=== PATIENT | male | born 1955 | race Caucasian/White ===

== ENCOUNTER 2021-02-13 14:02 | Emergency (ER) | payer OTHER ==
[~2021-02-13] VITALS: Ht 180.3 cm; Wt 86.2 kg
[2021-02-13] MEDS ORDERED: SODIUM CHLORIDE 0.9% 500 ML IV ONE (14:45)
[2021-02-13 15:27] LABS: Basophils # (auto) 0.1 10 ^3/uL (0-0.2); Eosinophils # (auto) 0.3 10 ^3/uL (0-0.8); Eosinophils % (auto) 2.4 % (0.0-7.0); Hematocrit 48.1 % (41.0-53.0); Hemoglobin 15.8 g/dL (13.5-17.5); Lymphocytes # (auto) 1.9 10 ^3/uL (0.4-5.4); Lymphocytes % (auto) 18.5 % (10.0-50.0); Mean Corpuscular Hemoglobin 30.9 pg (28.0-32.0); Mean Corpuscular Volume 93.7 fL (80.0-100.0); Monocytes # (auto) 1.2 10 ^3/uL (0-1.3); Monocytes % (auto) 11.5 % (0.0-12.0); Neutrophils % (auto) 66.6 % (37.0-80.0); Nucleated Red Blood Cells % 0.1 %; Platelet Count (auto) 325 10^3/uL (140-450); Red Blood Cells 5.13 10^6/uL (4.5-5.90); Red Cell Distribution Width 17.5 % (11.8-14.3); White Blood Cell 10.5 10^3/uL (4.4-10.8)
[2021-02-13 15:29] LABS: Albumin 2.6 g/dL (3.4-5.0); Calcium 8.6 mg/dL (8.5-10.1); Potassium 4.6 mmol/L (3.5-5.1)
[2021-02-13 15:32] LABS: BUN/Creatinine Ratio 16.3; Bilirubin, Total 0.5 mg/dL (0.2-1.0); Total Protein 6.9 g/dL (6.4-8.2)
[2021-02-13] MEDS ORDERED: VANCOMYCIN 1GM/250ML 250 ML IV ONE (16:00)
[2021-02-13] MEDS ORDERED: CLINDAMYCIN HCL 150 MG CAP PO ONE (16:45)
[2021-02-13 16:56] VITALS: BP 109/70
== END 2021-02-13 17:00 | disposition admitted as inpatient to this hospital (09) ==
LOC: ER 14:02
DX: M86.072 Acute hematogenous osteomyelitis, left ankle and foot (principal); E11.22 Type 2 diabetes mellitus with diabetic chronic kidney disease; I12.9 Hypertensive chronic kidney disease with stage 1 through stage 4 chronic kidney disease, or unspecified chronic kidney disease; N18.9 Chronic kidney disease, unspecified; J44.9 Chronic obstructive pulmonary disease, unspecified; F17.210 Nicotine dependence, cigarettes, uncomplicated; F12.10 Cannabis abuse, uncomplicated; Z20.822 Contact with and (suspected) exposure to COVID-19
CPT/HCPCS: 36415; 73700; 80053; 85025; 85652; 87426; 96360; 99284; J3370; J7040

== ENCOUNTER 2021-04-28 12:23 | Inpatient (IN) | payer OTHER ==
[~2021-04-28] VITALS: Ht 180.3 cm; Wt 78.4 kg
[2021-04-28 13:42] LABS: Basophils # (auto) 0.1 10 ^3/uL (0-0.2); Eosinophils # (auto) 0 10 ^3/uL (0-0.8); Hemoglobin 17.9 g/dL (13.5-17.5); Monocytes # (auto) 1.4 10 ^3/uL (0-1.3); Neutrophils # (auto) 15.1 10 ^3/uL (1.6-8.6); Nucleated Red Blood Cells % 0.1 %; White Blood Cell 17.2 10^3/uL (4.4-10.8)
[2021-04-28 13:43] LABS: Basophils % (auto) 0.4 % (0.0-2.0); Hematocrit 53.6 % (41.0-53.0); Lymphocytes # (auto) 0.6 10 ^3/uL (0.4-5.4); Lymphocytes % (auto) 3.7 % (10.0-50.0); Mean Corpuscular Hemoglobin 30.9 pg (28.0-32.0); Mean Corpuscular Hgb Conc. 33.3 g/dL (32.0-36.0); Mean Corpuscular Volume 92.8 fL (80.0-100.0); Monocytes % (auto) 8.1 % (0.0-12.0); Neutrophils % (auto) 87.8 % (37.0-80.0); Red Blood Cells 5.77 10^6/uL (4.5-5.90); Red Cell Distribution Width 16.3 % (11.8-14.3)
[2021-04-28 13:59] LABS: Albumin 1.6 g/dL (3.4-5.0); Calcium 8.4 mg/dL (8.5-10.1); Potassium 4.2 mmol/L (3.5-5.1)
[2021-04-28 14:05] LABS: BUN/Creatinine Ratio 25.8; Bilirubin, Total 0.8 mg/dL (0.2-1.0); Total Protein 6.6 g/dL (6.4-8.2)
[2021-04-28] MEDS ORDERED: ACETAMINOPHEN 500 MG TAB PO ONE ×2 (14:12→14:15)
[2021-04-28] MEDS: IPRATROPIUM BROM 0.5 MG/2.5ML INH SOL NEB SCH ×2 (19:15→23:50)
[2021-04-28] MEDS ORDERED: NITROGLYCERIN 0.4 MG SL TAB SL PRN (19:15)
[2021-04-28] MEDS ORDERED: BUMETANIDE 2.5mg/10ml (0.25 mg/ml) INJ IV ONE (19:15)
[2021-04-28] MEDS ORDERED: HYDROcodone-ACET 5/325MG TAB PO PRN (19:15)
[2021-04-28] MEDS ORDERED: MORPHINE SULFATE INJECTION 2 MG/ML SYRG IV PRN ×2 (19:15)
[2021-04-28] MEDS ORDERED: ACETAMINOPHEN 500 MG TAB PO PRN ×2 (19:15)
[2021-04-28 20:40] LABS: Urine Bacteria NONE SEEN /hpf (None Seen); Urine Blood 2+ /uL (Negative); Urine WBC 1 /hpf (0 - 3)
[2021-04-28] MEDS ORDERED: ALBUTEROL SULF 2.5 MG/0.5ML(0.5%) NEB SOLN NEB SCH (22:00)
[2021-04-28] MEDS ORDERED: IPRATROPIUM BROM 0.5 MG/2.5ML INH SOL NEB SCH (22:00)
[2021-04-28] MEDS: methylPREDNISolone SOD SUCC 40 MG/ML VL IV SCH (22:18)
[2021-04-28] MEDS ORDERED: ALBUTEROL SULF 2.5 MG/0.5ML(0.5%) NEB SOLN NEB PRN (23:00)
[2021-04-28] MEDS ORDERED: IPRATROPIUM BROM 0.5 MG/2.5ML INH SOL NEB PRN (23:00)
[2021-04-28] MEDS: PIPERACILLIN-TAZOB 2.25GM 50 ML IV SCH (23:46)
[2021-04-28] MEDS: ALBUTEROL SULF 2.5 MG/0.5ML(0.5%) NEB SOLN NEB SCH (23:51)
[2021-04-29] MEDS: MORPHINE SULFATE INJECTION 2 MG/ML SYRG IV PRN ×2 (01:41→19:45)
[2021-04-29 01:59] VITALS: BP 102/63
[2021-04-29 05:09] LABS: Basophils # (auto) 0.1 10 ^3/uL (0-0.2); Eosinophils # (auto) 0 10 ^3/uL (0-0.8); Lymphocytes # (auto) 0.2 10 ^3/uL (0.4-5.4); Lymphocytes % (auto) 0.9 % (10.0-50.0); Mean Corpuscular Volume 93.2 fL (80.0-100.0); Monocytes # (auto) 0.3 10 ^3/uL (0-1.3); Monocytes % (auto) 1.4 % (0.0-12.0); Neutrophils # (auto) 20.4 10 ^3/uL (1.6-8.6); Red Cell Distribution Width 16.7 % (11.8-14.3)
[2021-04-29 05:11] LABS: Basophils % (auto) 0.4 % (0.0-2.0); Hematocrit 55.5 % (41.0-53.0); Hemoglobin 18.4 g/dL (13.5-17.5); Mean Corpuscular Hemoglobin 30.8 pg (28.0-32.0); Mean Corpuscular Hgb Conc. 33.1 g/dL (32.0-36.0); Neutrophils % (auto) 97.3 % (37.0-80.0); Nucleated Red Blood Cells % 0.1 %; Red Blood Cells 5.96 10^6/uL (4.5-5.90)
[2021-04-29 05:25] LABS: INR 1.16 (0.9-1.15); Partial Thromboplastin Time 29.2 sec (23.6-33.0)
[2021-04-29 05:29] LABS: Potassium 4.3 mmol/L (3.5-5.1)
[2021-04-29 05:35] LABS: BUN/Creatinine Ratio 29.4; Calcium 8.9 mg/dL (8.5-10.1)
[2021-04-29] MEDS: methylPREDNISolone SOD SUCC 40 MG/ML VL IV SCH ×3 (05:39→22:18)
[2021-04-29] MEDS: IPRATROPIUM BROM 0.5 MG/2.5ML INH SOL NEB SCH ×3 (06:00→18:23)
[2021-04-29] MEDS: ALBUTEROL SULF 2.5 MG/0.5ML(0.5%) NEB SOLN NEB SCH ×3 (06:01→18:23)
[2021-04-29] MEDS: PIPERACILLIN-TAZOB 2.25GM 50 ML IV SCH ×3 (06:30→19:53)
[2021-04-29] MEDS ORDERED: cefTRIAXone 1GM/50ML D5W 50 ML IV SCH (10:00)
[2021-04-29] MEDS ORDERED: ENOXAPARIN SOD 30 MG/0.3 ML SYRINGE SC SCH (10:00)
[2021-04-29] MEDS ORDERED: cefTRIAXone 1GM/50ML D5W 50 ML IV ONE (10:12)
[2021-04-29] MEDS: ENOXAPARIN SOD 40 MG/0.4 ML SYRINGE SC SCH (10:25)
[2021-04-29] MEDS ORDERED: BUMETANIDE 2.5mg/10ml (0.25 mg/ml) INJ IV ONE (10:45)
[2021-04-29] MEDS: AZITHROMYCIN 500MG/ 250ML 250 ML IV SCH (11:00)
[2021-04-29] MEDS ORDERED: GABA-339 PO (13:16)
[2021-04-29] MEDS ORDERED: OXYC-904 PO (13:16)
[2021-04-29] MEDS: ONDANSETRON HCL 4 MG/2 ML VIAL IV PRN (19:45)
[2021-04-29] MEDS ORDERED: GASTROGRAFIN 30 ML SOL ONE (20:59)
[2021-04-29] MEDS: LINEZOLID 600MG/300ML 300 ML IV SCH (22:19)
[2021-04-30] MEDS: PIPERACILLIN-TAZOB 2.25GM 50 ML IV SCH ×4 (00:10→18:14)
[2021-04-30] MEDS: MORPHINE SULFATE INJECTION 2 MG/ML SYRG IV PRN ×5 (01:07→23:19)
[2021-04-30] MEDS: methylPREDNISolone SOD SUCC 40 MG/ML VL IV SCH ×3 (05:42→22:07)
[2021-04-30] MEDS: IPRATROPIUM BROM 0.5 MG/2.5ML INH SOL NEB SCH ×3 (07:35→19:39)
[2021-04-30] MEDS: ALBUTEROL SULF 2.5 MG/0.5ML(0.5%) NEB SOLN NEB SCH ×3 (07:35→19:39)
[2021-04-30] MEDS: LINEZOLID 600MG/300ML 300 ML IV SCH ×2 (08:00→22:06)
[2021-04-30] MEDS: HYDROcodone-ACET 5/325MG TAB PO PRN (08:55)
[2021-04-30] MEDS: AZITHROMYCIN 500MG/ 250ML 250 ML IV SCH (10:00)
[2021-04-30] MEDS: ENOXAPARIN SOD 40 MG/0.4 ML SYRINGE SC SCH (10:00)
[2021-04-30 11:31] LABS: Protein, Urine 307.4 mg/dL (0.0-11.9)
[2021-05-01] VITALS (7 sets, daily range): BP systolic 110–129; BP diastolic 63–91
[2021-05-01] MEDS: PIPERACILLIN-TAZOB 2.25GM 50 ML IV SCH ×4 (00:26→18:11)
[2021-05-01] MEDS: methylPREDNISolone SOD SUCC 40 MG/ML VL IV SCH ×3 (05:41→21:19)
[2021-05-01] MEDS: ALBUTEROL SULF 2.5 MG/0.5ML(0.5%) NEB SOLN NEB SCH ×4 (06:33→22:35)
[2021-05-01] MEDS: IPRATROPIUM BROM 0.5 MG/2.5ML INH SOL NEB SCH ×4 (06:34→22:35)
[2021-05-01] MEDS: MORPHINE SULFATE INJECTION 2 MG/ML SYRG IV PRN ×3 (06:50→21:20)
[2021-05-01 09:49] LABS: Hematocrit 51.2 % (41.0-53.0); Hemoglobin 16.8 g/dL (13.5-17.5); Mean Corpuscular Hemoglobin 30.8 pg (28.0-32.0); Mean Corpuscular Hgb Conc. 32.8 g/dL (32.0-36.0); Mean Corpuscular Volume 93.8 fL (80.0-100.0); Red Blood Cells 5.46 10^6/uL (4.5-5.90); Red Cell Distribution Width 16.9 % (11.8-14.3); White Blood Cell 19.7 10^3/uL (4.4-10.8)
[2021-05-01] MEDS: LINEZOLID 600MG/300ML 300 ML IV SCH ×2 (09:54→20:52)
[2021-05-01] MEDS: ENOXAPARIN SOD 40 MG/0.4 ML SYRINGE SC SCH (09:55)
[2021-05-01 09:57] LABS: Basophils % (manual) 0 (0.0-2.0); Blast Cells 0; Eosinophils % (manual) 0 (0-7); Metamyelocytes % 0; Myelocytes % 0; Promyelocytes % 0; Reactive Lymphocytes 0
[2021-05-01 10:02] LABS: BUN/Creatinine Ratio 29.6; Calcium 8.7 mg/dL (8.5-10.1); Potassium 3.7 mmol/L (3.5-5.1)
[2021-05-01] MEDS ORDERED: GASTROGRAFIN 120 ML SOL ONE (10:21)
[2021-05-01 10:37] LABS: Band Neutrophils % (manual) 18; Lymphocytes % (manual) 3 (10.0-50.0); Monocytes % (manual) 1 (0-12)
[2021-05-01] MEDS: AZITHROMYCIN 500MG/ 250ML 250 ML IV SCH (11:54)
[2021-05-02] MEDS: PIPERACILLIN-TAZOB 2.25GM 50 ML IV SCH ×4 (00:13→18:07)
[2021-05-02] MEDS: MORPHINE SULFATE INJECTION 2 MG/ML SYRG IV PRN ×3 (02:25→10:31)
[2021-05-02 05:00] VITALS: BP 116/71
[2021-05-02] MEDS: methylPREDNISolone SOD SUCC 40 MG/ML VL IV SCH ×3 (06:17→22:00)
[2021-05-02] MEDS: ALBUTEROL SULF 2.5 MG/0.5ML(0.5%) NEB SOLN NEB SCH ×5 (07:44→22:37)
[2021-05-02] MEDS: IPRATROPIUM BROM 0.5 MG/2.5ML INH SOL NEB SCH ×5 (07:44→22:37)
[2021-05-02] MEDS: LINEZOLID 600MG/300ML 300 ML IV SCH (08:11)
[2021-05-02] MEDS: ENOXAPARIN SOD 40 MG/0.4 ML SYRINGE SC SCH (10:00)
[2021-05-02] MEDS: AZITHROMYCIN 500MG/ 250ML 250 ML IV SCH (10:00)
[2021-05-02] MEDS ORDERED: IODIXANOL 320MG/ML 100ML BTL IV ONE ×2 (13:11→13:56)
[2021-05-02] MEDS ORDERED: LIDOCAINE 2%HCL (LOCAL ANESTH.) INJ 20ML MDV ONE (13:11)
[2021-05-02] MEDS ORDERED: fentaNYL CITRATE 100 MCG/2 ML VL ONE (13:27)
[2021-05-02] MEDS ORDERED: ANGIOMAX 250 MG VIAL IV ONE (13:27)
[2021-05-02] MEDS ORDERED: SODIUM CHL 0.9% 0 ML ONE (13:28)
[2021-05-02] MEDS ORDERED: MIDAZOLAM HCL 2MG/2ML 2ml VIAL (1mg/ml) ONE (13:28)
[2021-05-02] MEDS ORDERED: diphenhdrAMINE HCL 50 MG/1 ML VL ONE (13:58)
[2021-05-02 20:00] VITALS: BP 111/68
[2021-05-02 22:10] VITALS: BP 143/94
[2021-05-03] MEDS: PIPERACILLIN-TAZOB 2.25GM 50 ML IV SCH ×2 (01:27→06:50)
[2021-05-03] MEDS: MORPHINE SULFATE INJECTION 2 MG/ML SYRG IV PRN ×4 (04:07→23:31)
[2021-05-03 05:30] VITALS: BP 117/85
[2021-05-03] MEDS: IPRATROPIUM BROM 0.5 MG/2.5ML INH SOL NEB SCH ×5 (05:47→22:57)
[2021-05-03] MEDS: ALBUTEROL SULF 2.5 MG/0.5ML(0.5%) NEB SOLN NEB SCH ×5 (05:47→22:57)
[2021-05-03] MEDS: methylPREDNISolone SOD SUCC 40 MG/ML VL IV SCH ×3 (06:50→22:25)
[2021-05-03 07:01] LABS: Hematocrit 50.8 % (41.0-53.0); Hemoglobin 16.9 g/dL (13.5-17.5); Mean Corpuscular Hemoglobin 30.8 pg (28.0-32.0); Mean Corpuscular Hgb Conc. 33.3 g/dL (32.0-36.0); Mean Corpuscular Volume 92.8 fL (80.0-100.0); Red Blood Cells 5.47 10^6/uL (4.5-5.90); Red Cell Distribution Width 16.9 % (11.8-14.3); White Blood Cell 18.1 10^3/uL (4.4-10.8)
[2021-05-03] MEDS ORDERED: ceFAZolin 1GM VL ONE (07:21)
[2021-05-03] MEDS ORDERED: NEOMYCIN-BACITRACIN-POLYM 15GM TOP OINT TOP ONE (07:21)
[2021-05-03 07:28] LABS: Potassium 3.5 mmol/L (3.5-5.1)
[2021-05-03 07:36] LABS: BUN/Creatinine Ratio 35.4; Calcium 9.3 mg/dL (8.5-10.1); Magnesium 2.7 mg/dL (1.6-2.6)
[2021-05-03] MEDS ORDERED: ceFAZolin 1GM/50ML 50 ML IV ONE (07:48)
[2021-05-03] MEDS ORDERED: BUPIVACAINE HCL 50 ML ONE (07:52)
[2021-05-03 07:54] LABS: Basophils % (manual) 0 (0.0-2.0); Blast Cells 0; Eosinophils % (manual) 0 (0-7); Metamyelocytes % 0; Myelocytes % 0; Promyelocytes % 0
[2021-05-03] MEDS ORDERED: PROPOFOL 10 MG/ML 20 ML IV ONE ×2 (08:05→08:32)
[2021-05-03] MEDS ORDERED: MIDAZOLAM HCL 2MG/2ML 2ml VIAL (1mg/ml) ONE (08:05)
[2021-05-03] MEDS ORDERED: LIDOCAINE 2% (LOCAL ANESTH.) PF 5ml SDV ONE (08:05)
[2021-05-03] MEDS ORDERED: HYDROmorphone HCL 2 MG/ML VL IV PRN (09:15)
[2021-05-03] MEDS ORDERED: ONDANSETRON HCL 4 MG/2 ML VIAL IV PRN (09:15)
[2021-05-03] MEDS ORDERED: LABETALOL HCL 5 MG/ML 4ML SYRINGE IV PRN (09:15)
[2021-05-03 10:26] LABS: INR 1.27 (0.9-1.15); Partial Thromboplastin Time 27.9 sec (23.6-33.0)
[2021-05-03 11:58] LABS: Band Neutrophils % (manual) 16; Lymphocytes % (manual) 9 (10.0-50.0); Monocytes % (manual) 5 (0-12); Reactive Lymphocytes 1
[2021-05-03 13:00] VITALS: BP 124/82
[2021-05-03] MEDS: AZITHROMYCIN 250 MG TAB PO SCH (13:16)
[2021-05-03] MEDS: cefTRIAXone 1GM/50ML D5W 50 ML IV SCH (13:16)
[2021-05-03] MEDS: ONDANSETRON HCL 4 MG/2 ML VIAL IV PRN (13:17)
[2021-05-03] MEDS: ENOXAPARIN SOD 40 MG/0.4 ML SYRINGE SC SCH (13:20)
[2021-05-03 17:00] VITALS: BP 123/77
[2021-05-03] MEDS: HYDROcodone-ACET 5/325MG TAB PO PRN (20:58)
[2021-05-03 22:00] VITALS: BP 112/77
[2021-05-04] MEDS: HYDROmorphone HCL 2 MG/ML VL IV PRN ×5 (00:33→23:31)
[2021-05-04 05:00] VITALS: BP 130/87
[2021-05-04 05:31] LABS: INR 1.05 (0.9-1.15); Partial Thromboplastin Time 28.1 sec (23.6-33.0)
[2021-05-04 05:39] LABS: Hematocrit 48.3 % (41.0-53.0); Hemoglobin 15.7 g/dL (13.5-17.5); Mean Corpuscular Hemoglobin 30.1 pg (28.0-32.0); Mean Corpuscular Hgb Conc. 32.5 g/dL (32.0-36.0); Mean Corpuscular Volume 92.6 fL (80.0-100.0); Red Blood Cells 5.22 10^6/uL (4.5-5.90); Red Cell Distribution Width 16.9 % (11.8-14.3); White Blood Cell 17.6 10^3/uL (4.4-10.8)
[2021-05-04 05:42] LABS: Band Neutrophils % (manual) 0; Basophils % (manual) 0 (0.0-2.0); Blast Cells 0; Eosinophils % (manual) 0 (0-7); Metamyelocytes % 0; Myelocytes % 0; Promyelocytes % 0; Reactive Lymphocytes 0
[2021-05-04] MEDS: methylPREDNISolone SOD SUCC 40 MG/ML VL IV SCH ×3 (06:40→22:00)
[2021-05-04] MEDS: ALBUTEROL SULF 2.5 MG/0.5ML(0.5%) NEB SOLN NEB SCH ×5 (06:55→22:00)
[2021-05-04] MEDS: IPRATROPIUM BROM 0.5 MG/2.5ML INH SOL NEB SCH ×5 (06:55→22:00)
[2021-05-04 08:14] LABS: Lymphocytes % (manual) 5 (10.0-50.0); Monocytes % (manual) 2 (0-12)
[2021-05-04 08:32] VITALS: BP 144/87
[2021-05-04] MEDS: PANTOPRAZOLE 40 MG/10 ML VIAL INJ IV SCH (09:12)
[2021-05-04] MEDS: AZITHROMYCIN 250 MG TAB PO SCH (09:12)
[2021-05-04] MEDS: cefTRIAXone 1GM/50ML D5W 50 ML IV SCH (09:13)
[2021-05-04] MEDS: ONDANSETRON HCL 4 MG/2 ML VIAL IV PRN (09:23)
[2021-05-04] MEDS: HYDROcodone-ACET 5/325MG TAB PO PRN ×2 (09:24→18:57)
[2021-05-04 13:00] VITALS: BP 106/61
[2021-05-04 16:54] VITALS: BP 146/84
[2021-05-04 22:00] VITALS: BP 147/92
[2021-05-05] MEDS: HYDROmorphone HCL 2 MG/ML VL IV PRN ×3 (03:46→22:08)
[2021-05-05 05:00] VITALS: BP 141/78
[2021-05-05] MEDS: HYDROcodone-ACET 5/325MG TAB PO PRN ×2 (05:38→23:22)
[2021-05-05] MEDS: methylPREDNISolone SOD SUCC 40 MG/ML VL IV SCH ×2 (06:00→21:28)
[2021-05-05] MEDS: IPRATROPIUM BROM 0.5 MG/2.5ML INH SOL NEB SCH ×5 (07:32→22:50)
[2021-05-05] MEDS: ALBUTEROL SULF 2.5 MG/0.5ML(0.5%) NEB SOLN NEB SCH ×5 (07:32→22:50)
[2021-05-05 09:00] VITALS: BP 129/76
[2021-05-05] MEDS: cefTRIAXone 1GM/50ML D5W 50 ML IV SCH (11:10)
[2021-05-05] MEDS: PANTOPRAZOLE 40 MG/10 ML VIAL INJ IV SCH (11:11)
[2021-05-05] MEDS: AZITHROMYCIN 250 MG TAB PO SCH (11:11)
[2021-05-05 13:00] VITALS: BP 126/75
[2021-05-05] MEDS ORDERED: FAMO20TA10 PO (14:16)
[2021-05-05] MEDS ORDERED: ALBUAER3 IN (14:16)
[2021-05-05] MEDS ORDERED: PRED20TA2 PO (14:16)
[2021-05-05 14:50] VITALS: BP 126/75
[2021-05-05 17:00] VITALS: BP 127/80
[2021-05-05 22:00] VITALS: BP 134/78
[2021-05-06] MEDS: HYDROmorphone HCL 2 MG/ML VL IV PRN ×2 (01:05→08:47)
[2021-05-06 05:00] VITALS: BP 106/74
[2021-05-06] MEDS: HYDROcodone-ACET 5/325MG TAB PO PRN ×3 (06:04→21:02)
[2021-05-06] MEDS: IPRATROPIUM BROM 0.5 MG/2.5ML INH SOL NEB SCH ×5 (06:58→22:25)
[2021-05-06] MEDS: ALBUTEROL SULF 2.5 MG/0.5ML(0.5%) NEB SOLN NEB SCH ×5 (06:58→22:25)
[2021-05-06] MEDS: cefTRIAXone 1GM/50ML D5W 50 ML IV SCH (08:47)
[2021-05-06 09:00] VITALS: BP 143/93
[2021-05-06] MEDS: PANTOPRAZOLE 40 MG/10 ML VIAL INJ IV SCH (09:26)
[2021-05-06] MEDS: AZITHROMYCIN 250 MG TAB PO SCH (09:26)
[2021-05-06] MEDS: methylPREDNISolone SOD SUCC 40 MG/ML VL IV SCH ×2 (09:26→21:02)
[2021-05-06 13:00] VITALS: BP 149/112
[2021-05-06 17:00] VITALS: BP 157/77
[2021-05-06 21:36] VITALS: BP 135/70
[2021-05-07] MEDS: HYDROcodone-ACET 5/325MG TAB PO PRN ×3 (03:10→17:44)
[2021-05-07 05:12] VITALS: BP 143/84
[2021-05-07] MEDS: ALBUTEROL SULF 2.5 MG/0.5ML(0.5%) NEB SOLN NEB SCH ×5 (06:39→22:00)
[2021-05-07] MEDS: IPRATROPIUM BROM 0.5 MG/2.5ML INH SOL NEB SCH ×5 (06:39→22:00)
[2021-05-07 09:00] VITALS: BP 143/85
[2021-05-07] MEDS: cefTRIAXone 1GM/50ML D5W 50 ML IV SCH (09:35)
[2021-05-07] MEDS: PANTOPRAZOLE 40 MG/10 ML VIAL INJ IV SCH (09:38)
[2021-05-07] MEDS: methylPREDNISolone SOD SUCC 40 MG/ML VL IV SCH (09:39)
[2021-05-07 13:00] VITALS: BP 157/92
[2021-05-07 17:00] VITALS: BP 148/80
[2021-05-07] MEDS ORDERED: HYDROcodone-ACET 10/325MG TAB PO PRN (20:45)
[2021-05-07] MEDS: GABAPENTIN 300 MG CAP PO SCH (21:31)
[2021-05-07 22:00] VITALS: BP 152/79
[2021-05-08 05:00] VITALS: BP 150/83
[2021-05-08] MEDS: GABAPENTIN 300 MG CAP PO SCH ×2 (05:53→13:17)
[2021-05-08] MEDS: IPRATROPIUM BROM 0.5 MG/2.5ML INH SOL NEB SCH ×3 (06:00→14:17)
[2021-05-08] MEDS: ALBUTEROL SULF 2.5 MG/0.5ML(0.5%) NEB SOLN NEB SCH ×3 (06:00→14:17)
[2021-05-08 09:00] VITALS: BP 136/89
[2021-05-08] MEDS: cefTRIAXone 1GM/50ML D5W 50 ML IV SCH (09:54)
[2021-05-08 10:05] VITALS: BP 136/89
[2021-05-08 13:06] VITALS: BP 126/73
[2021-05-08 16:41] VITALS: BP 137/90
== END 2021-05-08 19:02 | DRG 853 ==
LOC: ER 12:23 → EDBD 12:23 → TELE 19:06 → TELE-WESTW 04-30 20:45
PROVIDERS: ADMIT Nurse Practitioner Acute Care; ATTEND Internal Medicine
PROC: B41GYZZ Fluoroscopy of Left Lower Extremity Arteries using Other Contrast (ICD-10-PCS; 2021-05-02)
PROC: B41FYZZ Fluoroscopy of Right Lower Extremity Arteries using Other Contrast (ICD-10-PCS; 2021-05-02)
PROC: 0Y6Q0Z0 Detachment at Left 1st Toe, Complete, Open Approach (ICD-10-PCS; 2021-05-03)
PROC: 0QTP0ZZ Resection of Left Metatarsal, Open Approach (ICD-10-PCS; principal; 2021-05-03 07:57)
PROC: 05HC33Z Insertion of Infusion Device into Left Basilic Vein, Percutaneous Approach (ICD-10-PCS; 2021-05-06)
PROC: B54NZZA Ultrasonography of Left Upper Extremity Veins, Guidance (ICD-10-PCS; 2021-05-06)
DX: A41.9 Sepsis, unspecified organism (principal); J18.9 Pneumonia, unspecified organism; J96.01 Acute respiratory failure with hypoxia; I50.21 Acute systolic (congestive) heart failure; E43 Unspecified severe protein-calorie malnutrition; N17.0 Acute kidney failure with tubular necrosis; J44.1 Chronic obstructive pulmonary disease with (acute) exacerbation; J98.11 Atelectasis; N18.4 Chronic kidney disease, stage 4 (severe); E87.1 Hypo-osmolality and hyponatremia; M86.8X7 Other osteomyelitis, ankle and foot; I13.0 Hypertensive heart and chronic kidney disease with heart failure and stage 1 through stage 4 chronic kidney disease, or unspecified chronic kidney disease; J44.0 Chronic obstructive pulmonary disease with (acute) lower respiratory infection; R65.20 Severe sepsis without septic shock; E11.621 Type 2 diabetes mellitus with foot ulcer; D63.8 Anemia in other chronic diseases classified elsewhere; E11.22 Type 2 diabetes mellitus with diabetic chronic kidney disease; E11.51 Type 2 diabetes mellitus with diabetic peripheral angiopathy without gangrene; E11.69 Type 2 diabetes mellitus with other specified complication; E78.5 Hyperlipidemia, unspecified; F17.210 Nicotine dependence, cigarettes, uncomplicated; M54.5 Low back pain; K43.9 Ventral hernia without obstruction or gangrene; N40.1 Benign prostatic hyperplasia with lower urinary tract symptoms; R33.8 Other retention of urine; L97.529 Non-pressure chronic ulcer of other part of left foot with unspecified severity; Z20.822 Contact with and (suspected) exposure to COVID-19; Z79.4 Long term (current) use of insulin; Z83.3 Family history of diabetes mellitus; Z90.81 Acquired absence of spleen; Z95.0 Presence of cardiac pacemaker; Z68.24 Body mass index [BMI] 24.0-24.9, adult
CPT/HCPCS: 36415; 36600; 71045; 73620; 73700; 73718; 74018; 74176; 74250; 75716; 76775; 78582; 80048; 80053; 81001; 82306; 82570; 82805; 83605; 83735; 83880; 83970; 84100; 84156; 84300; 84484; 85007; 85025; 85027; 85379; 85610; 85730; 87040; 87070; 87075; 87077; 87081; 87186; 87205; 87426; 93005; 93306; 93926; 94640; 96365; 96375; 97110; 97116; 97163; 97530; 99152; C9113; G0378; J0690; J0696; J2001; J2250; J2405; J2543; J2704; J3490; Q9967

== ENCOUNTER 2021-10-16 08:45 | Inpatient (IN) | payer OTHER ==
[2021-10-16] VITALS (10 sets, daily range): BP systolic 83–141; BP diastolic 44–88
[~2021-10-16] VITALS: Ht 180.3 cm; Wt 82.4 kg
[~2021-10-16 08:45] MED LIST: ALBUAER3 IN; ASPI1TAB20 PO; CALC1CAP31 PO; FAMO20TA10 PO; GABA-339 PO; MET50T PO; OXYC-904 PO; PRAV20TA3 PO; PRED20TA2 PO; TAMS0.4C36 PO
[2021-10-16] MEDS ORDERED: ceFAZolin 1GM/50ML 100 ML IV ONE (08:54)
[2021-10-16] MEDS ORDERED: LIDOCAINE W/ EPINEPHRINE 2% INJ 20ML VIAL ONE (09:32)
[2021-10-16] MEDS ORDERED: BUPIVACAINE 0.25% INJ 50ML VIAL ONE (09:33)
[2021-10-16] MEDS ORDERED: VANCOMYCIN HCL 1000 MG VL ONE (09:34)
[2021-10-16] MEDS ORDERED: MIDAZOLAM HCL 2MG/2ML 2ml VIAL (1mg/ml) ONE (11:45)
[2021-10-16] MEDS ORDERED: fentaNYL CITRATE 5 ML ONE (11:45)
[2021-10-16] MEDS ORDERED: IOHEXOL 300 MG/ML 100ML BOTTLE IJ ONE (12:30)
[2021-10-16] MEDS ORDERED: EPINEPHrine HCL 1 MG/1 ML AMP ONE (13:22)
[2021-10-16] MEDS ORDERED: MIDAZOLAM DRIP 50 mg/50mL 50 ML IV ONE (14:15)
[2021-10-16] MEDS ORDERED: NALOXONE HCL 0.4 MG/ML VIAL ONE (14:15)
[2021-10-16] MEDS ORDERED: NOREPINEPHRINE 8 MG/250ML KIT 250 ML IV ONE (14:16)
[2021-10-16] MEDS: MIDAZOLAM DRIP 50 mg/50mL 50 ML IV SCH ×2 (14:32→21:06)
[2021-10-16] MEDS: NOREPINEPHRINE 8 MG/250ML KIT 250 ML IV SCH (14:33)
[2021-10-16 14:44] LABS: Basophils # (auto) 0 10 ^3/uL (0-0.2); Basophils % (auto) 0.5 % (0.0-2.0); Eosinophils # (auto) 0.2 10 ^3/uL (0-0.8); Eosinophils % (auto) 2.3 % (0.0-7.0); Hematocrit 29.1 % (41.0-53.0); Lymphocytes # (auto) 1.2 10 ^3/uL (0.4-5.4); Mean Corpuscular Hemoglobin 28.5 pg (28.0-32.0); Mean Corpuscular Volume 91.9 fL (80.0-100.0); Monocytes # (auto) 0.5 10 ^3/uL (0-1.3); Monocytes % (auto) 6.1 % (0.0-12.0); Neutrophils % (auto) 76.1 % (37.0-80.0); Nucleated Red Blood Cells % 0.1 %; Red Blood Cells 3.17 10^6/uL (4.5-5.90); Red Cell Distribution Width 18.9 % (11.8-14.3); White Blood Cell 7.9 10^3/uL (4.4-10.8)
[2021-10-16] MEDS ORDERED: D5W/SOD CHLO 0.9% 1,000 ML IV SCH (14:45)
[2021-10-16] MEDS ORDERED: SODIUM CHLORIDE 0.9% 1,000 ML IV ONE (14:45)
[2021-10-16] MEDS ORDERED: MORPHINE SULFATE INJECTION 2 MG/ML SYRG IV PRN (14:45)
[2021-10-16] MEDS ORDERED: NITROGLYCERIN 0.4 MG SL TAB SL PRN (14:45)
[2021-10-16 14:47] LABS: INR 1.37 (0.9-1.15); Partial Thromboplastin Time 40.4 sec (23.6-33.0)
[2021-10-16 14:57] LABS: Albumin 1.1 g/dL (3.4-5.0); BUN/Creatinine Ratio 22.4; Calcium 6.5 mg/dL (8.5-10.1); Potassium 4.2 mmol/L (3.5-5.1)
[2021-10-16 15:00] LABS: Bilirubin, Total 0.2 mg/dL (0.2-1.0); Total Protein 2.9 g/dL (6.4-8.2)
[2021-10-16] MEDS ORDERED: ACETAMINOPHEN 500 MG TAB PO ONE (16:00)
[2021-10-16] MEDS ORDERED: ONDANSETRON HCL 4 MG/2 ML VIAL IV PRN (16:00)
[2021-10-16] MEDS: fentaNYL Drip 2500mCg/250mlNS 250 ML IV SCH (17:00)
[2021-10-16] MEDS: MAGNESIUM SULFATE 1GM/100ML 100 ML IV SCH ×3 (17:00→23:12)
[2021-10-16] MEDS ORDERED: SODIUM BICARBONATE 8.4% INJ 50ML SYRINGE IV ONE ×2 (21:10)
[2021-10-16] MEDS ORDERED: EPINEPHrine HCL 1 MG/10 ML SYRG IV ONE (21:10)
[2021-10-16] MEDS: D5W/SOD CHLO 0.9% 1,000 ML IV SCH (22:16)
[2021-10-17] VITALS (30 sets, daily range): BP systolic 102–173; BP diastolic 58–98
[2021-10-17] MEDS: MAGNESIUM SULFATE 1GM/100ML 100 ML IV SCH (00:28)
[2021-10-17] MEDS: MIDAZOLAM DRIP 50 mg/50mL 50 ML IV SCH (00:45)
[2021-10-17] MEDS: D5W/SOD CHLO 0.9% 1,000 ML IV SCH ×2 (05:20→18:40)
[2021-10-17 09:54] LABS: Eosinophils # (auto) 0.1 10 ^3/uL (0-0.8); Lymphocytes # (auto) 1.4 10 ^3/uL (0.4-5.4); Mean Corpuscular Hemoglobin 28.2 pg (28.0-32.0); Monocytes # (auto) 1.2 10 ^3/uL (0-1.3); Neutrophils # (auto) 7.2 10 ^3/uL (1.6-8.6); Nucleated Red Blood Cells % 0.2 %
[2021-10-17 09:55] LABS: Basophils # (auto) 0 10 ^3/uL (0-0.2); Basophils % (auto) 0.5 % (0.0-2.0); Eosinophils % (auto) 1.1 % (0.0-7.0); Hematocrit 44.6 % (41.0-53.0); Hemoglobin 13.5 g/dL (13.5-17.5); Lymphocytes % (auto) 14.2 % (10.0-50.0); Mean Corpuscular Hgb Conc. 30.3 g/dL (32.0-36.0); Mean Corpuscular Volume 93.1 fL (80.0-100.0); Neutrophils % (auto) 72.2 % (37.0-80.0); Red Cell Distribution Width 19.5 % (11.8-14.3)
[2021-10-17] MEDS: FAMOTIDINE (10MG/ML) 2ML VL IV SCH (10:00)
[2021-10-17] MEDS ORDERED: FUROSEMIDE 40 MG/4 ML VIAL IV ONE (12:15)
[2021-10-17] MEDS ORDERED: ASPirin 81 mg TAB PO ONE (12:15)
[2021-10-17 13:16] LABS: Urine WBC None Seen /hpf (0 - 3)
[2021-10-17 13:48] LABS: Alcohol, Urine < 3.0 mg/dL (0-10); Amphetamine Screen, Urine NEGATIVE (NEGATIVE); Barbiturate Scree,Urine NEGATIVE (NEGATIVE); Benzodiazephine Screen, Urine POSITIVE (NEGATIVE); Cannabinoid Screen, Urine NEGATIVE (NEGATIVE); Cocaine Screen, Urine NEGATIVE (NEGATIVE); Opiate Scree,Urine NEGATIVE (NEGATIVE); Phencyclidine Screen, Urine NEGATIVE (NEGATIVE)
[2021-10-17] MEDS: NOREPINEPHRINE 8 MG/250ML KIT 250 ML IV SCH (14:15)
[2021-10-17 14:26] LABS: Urine Bacteria FEW /hpf (None Seen); Urine Blood 2+ /uL (Negative); Urine Hyaline Cast FEW /lpf (0 - 2); Urine Mucus FEW (None Seen); Urine Specific Gravity 1.015 (1.001-1.035)
[2021-10-17 15:11] LABS: Potassium 4.1 mmol/L (3.5-5.1); Sodium 129 mmol/L (136-145)
[2021-10-17 15:12] LABS: Alkaline Phosphatase 218 U/L (45-117); Anion Gap 10 (5-15); Aspartate Aminotransferase 29 U/L (15-37); BUN/Creatinine Ratio 12.3; Blood Urea Nitrogen 21 mg/dL (7-18); Carbon Dioxide 19 mmol/L (21-32); Chloride 100 mmol/L (98-107); GFR African American 52 mL/min; GFR Non-African American 43 mL/min; Glucose 382 mg/dL (74-106)
[2021-10-17 15:13] LABS: Alanine Aminotransferase 24 U/L (16-61); Albumin 2.9 g/dL (3.4-5.0); Bilirubin, Total 0.8 mg/dL (0.2-1.0); Calcium 7.9 mg/dL (8.5-10.1); Magnesium 2.4 mg/dL (1.6-2.6); Total Protein 7.2 g/dL (6.4-8.2)
[2021-10-17] MEDS: fentaNYL Drip 2500mCg/250mlNS 250 ML IV SCH (16:45)
[2021-10-17] MEDS ORDERED: hydrALAZINE HCL 20 MG/ML VL ONE (17:52)
[2021-10-17] MEDS: FUROSEMIDE 40 MG/4 ML VIAL IV SCH (18:00)
[2021-10-18] VITALS (27 sets, daily range): BP systolic 99–162; BP diastolic 65–101
[2021-10-18 04:52] LABS: Basophils # (auto) 0.1 10 ^3/uL (0-0.2); Basophils % (auto) 0.8 % (0.0-2.0); Eosinophils # (auto) 0.2 10 ^3/uL (0-0.8); Eosinophils % (auto) 1.3 % (0.0-7.0); Hematocrit 45.9 % (41.0-53.0); Hemoglobin 14.8 g/dL (13.5-17.5); Lymphocytes % (auto) 8.4 % (10.0-50.0); Mean Corpuscular Hemoglobin 28.3 pg (28.0-32.0); Mean Corpuscular Hgb Conc. 32.1 g/dL (32.0-36.0); Mean Corpuscular Volume 88.1 fL (80.0-100.0); Monocytes # (auto) 1.6 10 ^3/uL (0-1.3); Monocytes % (auto) 12.6 % (0.0-12.0); Neutrophils # (auto) 9.6 10 ^3/uL (1.6-8.6); Neutrophils % (auto) 76.9 % (37.0-80.0); Nucleated Red Blood Cells % 0.2 %; Red Blood Cells 5.21 10^6/uL (4.5-5.90); Red Cell Distribution Width 18.4 % (11.8-14.3); White Blood Cell 12.4 10^3/uL (4.4-10.8)
[2021-10-18 05:11] LABS: Potassium 4.5 mmol/L (3.5-5.1)
[2021-10-18 05:22] LABS: Albumin 2.4 g/dL (3.4-5.0); Bilirubin, Total 0.8 mg/dL (0.2-1.0); Calcium 8.3 mg/dL (8.5-10.1); Total Protein 6.2 g/dL (6.4-8.2)
[2021-10-18] MEDS: FUROSEMIDE 40 MG/4 ML VIAL IV SCH ×2 (05:56→18:00)
[2021-10-18] MEDS: D5W/SOD CHLO 0.9% 1,000 ML IV SCH (08:00)
[2021-10-18] MEDS: FAMOTIDINE (10MG/ML) 2ML VL IV SCH (10:09)
[2021-10-18] MEDS: NOREPINEPHRINE 8 MG/250ML KIT 250 ML IV SCH (10:10)
[2021-10-18] MEDS: ASPirin 81 mg TAB PO SCH (10:10)
[2021-10-18] MEDS: MIDAZOLAM DRIP 50 mg/50mL 50 ML IV SCH (14:15)
[2021-10-18] MEDS: fentaNYL Drip 2500mCg/250mlNS 250 ML IV SCH ×2 (16:45→23:00)
[2021-10-19] VITALS (30 sets, daily range): BP systolic 98–149; BP diastolic 56–85
[2021-10-19] MEDS: D5W/SOD CHLO 0.9% 1,000 ML IV SCH ×3 (01:42→16:25)
[2021-10-19 03:32] LABS: Calcium 8.2 mg/dL (8.5-10.1)
[2021-10-19] MEDS: FUROSEMIDE 40 MG/4 ML VIAL IV SCH ×2 (05:32→17:30)
[2021-10-19] MEDS: ENOXAPARIN SOD 40 MG/0.4 ML SYRINGE SC SCH (09:51)
[2021-10-19] MEDS: FAMOTIDINE (10MG/ML) 2ML VL IV SCH (09:51)
[2021-10-19] MEDS: ASPirin 81 mg TAB PO SCH (09:51)
[2021-10-19] MEDS: MIDAZOLAM DRIP 50 mg/50mL 50 ML IV SCH (14:11)
[2021-10-19] MEDS: NOREPINEPHRINE 8 MG/250ML KIT 250 ML IV SCH (14:11)
[2021-10-19] MEDS ORDERED: levoFLOXacin 500MG 100 ML IV ONE (14:15)
[2021-10-19] MEDS: ALBUTEROL SULF 2.5 MG/0.5ML(0.5%) NEB SOLN NEB SCH ×2 (14:28→18:45)
[2021-10-19] MEDS: ACETYLCYSTEINE 10 %(100MG/ML) SOL 4ML NEB SCH ×2 (14:28→18:45)
[2021-10-19] MEDS ORDERED: ACETYLCYSTEINE 10 %(100MG/ML) SOL 4ML NEB PRN (19:00)
[2021-10-20] VITALS (29 sets, daily range): BP systolic 95–153; BP diastolic 56–95
[2021-10-20] MEDS: fentaNYL Drip 2500mCg/250mlNS 250 ML IV SCH (01:53)
[2021-10-20 03:54] LABS: Basophils # (auto) 0.1 10 ^3/uL (0-0.2); Basophils % (auto) 0.7 % (0.0-2.0); Eosinophils # (auto) 0.3 10 ^3/uL (0-0.8); Eosinophils % (auto) 2.3 % (0.0-7.0); Hematocrit 42.4 % (41.0-53.0); Hemoglobin 13.3 g/dL (13.5-17.5); Lymphocytes # (auto) 1.1 10 ^3/uL (0.4-5.4); Lymphocytes % (auto) 7.9 % (10.0-50.0); Mean Corpuscular Hemoglobin 27.9 pg (28.0-32.0); Mean Corpuscular Hgb Conc. 31.4 g/dL (32.0-36.0); Mean Corpuscular Volume 89.1 fL (80.0-100.0); Monocytes # (auto) 1.9 10 ^3/uL (0-1.3); Neutrophils # (auto) 10.9 10 ^3/uL (1.6-8.6); Neutrophils % (auto) 76.1 % (37.0-80.0); Red Blood Cells 4.77 10^6/uL (4.5-5.90); White Blood Cell 14.4 10^3/uL (4.4-10.8)
[2021-10-20 04:14] LABS: Calcium 8.3 mg/dL (8.5-10.1); Potassium 4.2 mmol/L (3.5-5.1)
[2021-10-20 04:18] LABS: BUN/Creatinine Ratio 19.6; Bilirubin, Total 0.7 mg/dL (0.2-1.0); Total Protein 6.2 g/dL (6.4-8.2)
[2021-10-20] MEDS: FUROSEMIDE 40 MG/4 ML VIAL IV SCH ×2 (05:37→17:34)
[2021-10-20] MEDS: D5W/SOD CHLO 0.9% 1,000 ML IV SCH ×2 (06:21→17:35)
[2021-10-20] MEDS: ALBUTEROL SULF 2.5 MG/0.5ML(0.5%) NEB SOLN NEB PRN (06:25)
[2021-10-20] MEDS: levoFLOXacin 500MG 100 ML IV SCH (10:30)
[2021-10-20] MEDS: FAMOTIDINE (10MG/ML) 2ML VL IV SCH (10:30)
[2021-10-20] MEDS: ASPirin 81 mg TAB PO SCH (10:31)
[2021-10-20] MEDS: ENOXAPARIN SOD 40 MG/0.4 ML SYRINGE SC SCH (10:31)
[2021-10-20] MEDS: MIDAZOLAM DRIP 50 mg/50mL 50 ML IV SCH (14:15)
[2021-10-20] MEDS: NOREPINEPHRINE 8 MG/250ML KIT 250 ML IV SCH (14:15)
[2021-10-20] MEDS: MORPHINE SULFATE INJECTION 2 MG/ML SYRG IV PRN ×2 (15:30→21:30)
[2021-10-20] MEDS ORDERED: LORazepam 2MG/ML-1ML VIAL IV ONE (16:00)
[2021-10-20] MEDS ORDERED: LORazepam 2MG/ML-1ML VIAL IV PRN (16:45)
[2021-10-20] MEDS ORDERED: LORazepam 2MG/ML-1ML VIAL ONE (16:48)
[2021-10-21] VITALS (7 sets, daily range): BP systolic 100–138; BP diastolic 68–107
[2021-10-21] MEDS: FUROSEMIDE 40 MG/4 ML VIAL IV SCH (06:00)
[2021-10-21] MEDS: FAMOTIDINE (10MG/ML) 2ML VL IV SCH (09:57)
[2021-10-21] MEDS: ENOXAPARIN SOD 40 MG/0.4 ML SYRINGE SC SCH (09:57)
[2021-10-21] MEDS: levoFLOXacin 500MG 100 ML IV SCH (09:58)
[2021-10-21] MEDS: FUROSEMIDE 20 MG/2 ML VIAL IV SCH (09:58)
[2021-10-21] MEDS: NOREPINEPHRINE 8 MG/250ML KIT 250 ML IV SCH (09:59)
[2021-10-21] MEDS: ASPirin 81 mg TAB PO SCH (09:59)
[2021-10-21] MEDS: HALOPERIDOL LACTATE 5 MG/ML INJ VIAL IM PRN ×2 (15:51→22:07)
[2021-10-21] MEDS: D5W/SOD CHLO 0.9% 1,000 ML IV SCH (16:19)
[2021-10-21] MEDS: MORPHINE SULFATE INJECTION 2 MG/ML SYRG IV PRN ×2 (19:50→23:30)
[2021-10-21] MEDS ORDERED: OXY20CRT PO (21:20)
[2021-10-21] MEDS: GABAPENTIN 300 MG CAP PO SCH (22:07)
[2021-10-22] VITALS (17 sets, daily range): BP systolic 98–183; BP diastolic 64–108
[2021-10-22 03:28] LABS: Basophils # (auto) 0.2 10 ^3/uL (0-0.2); Basophils % (auto) 0.9 % (0.0-2.0); Eosinophils # (auto) 0.1 10 ^3/uL (0-0.8); Eosinophils % (auto) 0.5 % (0.0-7.0); Hemoglobin 16.4 g/dL (13.5-17.5); Lymphocytes # (auto) 1.3 10 ^3/uL (0.4-5.4); Mean Corpuscular Hemoglobin 28.1 pg (28.0-32.0); Mean Corpuscular Hgb Conc. 32.2 g/dL (32.0-36.0); Mean Corpuscular Volume 87.5 fL (80.0-100.0); Monocytes # (auto) 2.9 10 ^3/uL (0-1.3); Monocytes % (auto) 15.3 % (0.0-12.0); Neutrophils # (auto) 14.3 10 ^3/uL (1.6-8.6); Neutrophils % (auto) 76.3 % (37.0-80.0); Nucleated Red Blood Cells % 0.3 %; Red Blood Cells 5.84 10^6/uL (4.5-5.90); White Blood Cell 18.7 10^3/uL (4.4-10.8)
[2021-10-22 03:44] LABS: Albumin 2.4 g/dL (3.4-5.0); Calcium 9.8 mg/dL (8.5-10.1); Potassium 3.3 mmol/L (3.5-5.1)
[2021-10-22 03:46] LABS: BUN/Creatinine Ratio 22.9; Magnesium 1.8 mg/dL (1.6-2.6)
[2021-10-22 03:48] LABS: Bilirubin, Total 1.4 mg/dL (0.2-1.0); Total Protein 7.4 g/dL (6.4-8.2)
[2021-10-22] MEDS: D5W/SOD CHLO 0.9% 1,000 ML IV SCH (05:22)
[2021-10-22] MEDS: GABAPENTIN 300 MG CAP PO SCH ×3 (05:22→22:12)
[2021-10-22] MEDS: MORPHINE SULFATE INJECTION 2 MG/ML SYRG IV PRN ×3 (05:22→14:38)
[2021-10-22] MEDS: FUROSEMIDE 20 MG/2 ML VIAL IV SCH (09:24)
[2021-10-22] MEDS: ENOXAPARIN SOD 40 MG/0.4 ML SYRINGE SC SCH (09:24)
[2021-10-22] MEDS: HALOPERIDOL LACTATE 5 MG/ML INJ VIAL IM PRN ×2 (09:25→15:49)
[2021-10-22] MEDS: POTASSIUM CHL 10MEQ/50ML 50 ML IV SCH ×2 (09:25→10:24)
[2021-10-22] MEDS: POTASSIUM EFFERVESENT TAB 25 MEQ PO SCH (09:26)
[2021-10-22] MEDS: ASPirin 81 mg TAB PO SCH (09:26)
[2021-10-22] MEDS: levoFLOXacin 500MG 100 ML IV SCH (09:26)
[2021-10-22] MEDS: FAMOTIDINE (10MG/ML) 2ML VL IV SCH (09:26)
[2021-10-22] MEDS ORDERED: MEROPENEM 500MG IVPB 50 ML IV SCH (11:30)
[2021-10-22] MEDS ORDERED: SODIUM CHLORIDE 0.9% 500 ML IV ONE (11:45)
[2021-10-22] MEDS ORDERED: DEXTROSE (50%) 50ML SYRG IV PRN (11:45)
[2021-10-22] MEDS: InsuLIN REG 1unit/0.01ml Soln (100units/ml) SC SCH ×2 (12:00→17:28)
[2021-10-22] MEDS: ACCU-CHEK COMFORT CURVE STRIP VI SCH ×2 (12:41→17:29)
[2021-10-22 13:48] LABS: Protein, Urine 761.5 mg/dL (0.0-11.9)
[2021-10-22] MEDS: SODIUM CHLORIDE 0.9% 1,000 ML IV SCH ×2 (13:56→21:45)
[2021-10-22 15:32] LABS: Urine Bacteria FEW /hpf (None Seen); Urine Blood 3+ /uL (Negative); Urine Hyaline Cast FEW /lpf (0 - 2); Urine Mucus FEW (None Seen); Urine Specific Gravity 1.018 (1.001-1.035); Urine WBC 11 /hpf (0 - 3)
[2021-10-22] MEDS: PRAVASTATIN SODIUM 20 MG TAB PO SCH (17:28)
[2021-10-22] MEDS: MEROPENEM 1GM IVPB 100 ML IV SCH (22:12)
[2021-10-23] VITALS (19 sets, daily range): BP systolic 111–207; BP diastolic 73–121
[2021-10-23 05:07] LABS: Basophils # (auto) 0.2 10 ^3/uL (0-0.2); Eosinophils # (auto) 0.3 10 ^3/uL (0-0.8); Eosinophils % (auto) 1.8 % (0.0-7.0); Hematocrit 50.1 % (41.0-53.0); Hemoglobin 15.5 g/dL (13.5-17.5); Lymphocytes # (auto) 1.4 10 ^3/uL (0.4-5.4); Lymphocytes % (auto) 7.9 % (10.0-50.0); Mean Corpuscular Hemoglobin 27.8 pg (28.0-32.0); Mean Corpuscular Volume 89.8 fL (80.0-100.0); Monocytes # (auto) 2.5 10 ^3/uL (0-1.3); Monocytes % (auto) 13.7 % (0.0-12.0); Neutrophils # (auto) 13.9 10 ^3/uL (1.6-8.6); Neutrophils % (auto) 75.6 % (37.0-80.0); Nucleated Red Blood Cells % 0.2 %; Red Blood Cells 5.58 10^6/uL (4.5-5.90); Red Cell Distribution Width 18.2 % (11.8-14.3); White Blood Cell 18.3 10^3/uL (4.4-10.8)
[2021-10-23 05:24] LABS: Albumin 2.2 g/dL (3.4-5.0); Calcium 9.5 mg/dL (8.5-10.1)
[2021-10-23 05:30] LABS: BUN/Creatinine Ratio 23.4; Bilirubin, Total 0.9 mg/dL (0.2-1.0); Total Protein 7.1 g/dL (6.4-8.2)
[2021-10-23] MEDS: InsuLIN REG 1unit/0.01ml Soln (100units/ml) SC SCH ×4 (06:00→18:00)
[2021-10-23] MEDS: GABAPENTIN 300 MG CAP PO SCH ×3 (06:17→21:48)
[2021-10-23] MEDS: ACCU-CHEK COMFORT CURVE STRIP VI SCH ×4 (06:18→18:00)
[2021-10-23] MEDS: SODIUM CHLORIDE 0.9% 1,000 ML IV SCH ×2 (07:45→17:23)
[2021-10-23] MEDS: FAMOTIDINE (10MG/ML) 2ML VL IV SCH (09:21)
[2021-10-23] MEDS: MEROPENEM 1GM IVPB 100 ML IV SCH ×2 (09:28→21:48)
[2021-10-23] MEDS: ENOXAPARIN SOD 40 MG/0.4 ML SYRINGE SC SCH (09:28)
[2021-10-23] MEDS: POTASSIUM EFFERVESENT TAB 25 MEQ PO SCH (10:00)
[2021-10-23] MEDS: ASPirin 81 mg TAB PO SCH (10:00)
[2021-10-23] MEDS: TAMSULOSIN HYDROCHLORIDE 0.4 MG CAP PO SCH (10:00)
[2021-10-23 11:48] LABS: Hepatitis A Ab IgM Negative; Hepatitis B Core IgM Negative
[2021-10-23 11:49] LABS: Hepatitis C Antibody Negative (Negative)
[2021-10-23] MEDS: hydrALAZINE HCL 20 MG/ML VL IV PRN ×2 (12:04→21:50)
[2021-10-23] MEDS ORDERED: MAGNESIUM SULFATE 1GM/100ML 100 ML IV ONE (12:30)
[2021-10-23] MEDS: PRAVASTATIN SODIUM 20 MG TAB PO SCH (17:23)
[2021-10-23] MEDS: ALBUTEROL SULF 2.5 MG/0.5ML(0.5%) NEB SOLN NEB PRN (19:25)
[2021-10-23] MEDS: HALOPERIDOL LACTATE 5 MG/ML INJ VIAL IM PRN (23:11)
[2021-10-24] VITALS (15 sets, daily range): BP systolic 101–180; BP diastolic 61–101
[2021-10-24 04:45] LABS: Basophils # (auto) 0.3 10 ^3/uL (0-0.2); Basophils % (auto) 1.3 % (0.0-2.0); Eosinophils # (auto) 0.1 10 ^3/uL (0-0.8); Eosinophils % (auto) 0.7 % (0.0-7.0); Hematocrit 50.7 % (41.0-53.0); Lymphocytes # (auto) 1.1 10 ^3/uL (0.4-5.4); Lymphocytes % (auto) 5.4 % (10.0-50.0); Mean Corpuscular Hemoglobin 28.2 pg (28.0-32.0); Mean Corpuscular Hgb Conc. 31.6 g/dL (32.0-36.0); Mean Corpuscular Volume 89.2 fL (80.0-100.0); Monocytes % (auto) 10.5 % (0.0-12.0); Neutrophils # (auto) 15.9 10 ^3/uL (1.6-8.6); Neutrophils % (auto) 82.1 % (37.0-80.0); Nucleated Red Blood Cells % 0.1 %; Red Blood Cells 5.69 10^6/uL (4.5-5.90); Red Cell Distribution Width 17.8 % (11.8-14.3); White Blood Cell 19.4 10^3/uL (4.4-10.8)
[2021-10-24 04:59] LABS: Albumin 2.2 g/dL (3.4-5.0); Calcium 9.5 mg/dL (8.5-10.1); Potassium 3.5 mmol/L (3.5-5.1)
[2021-10-24 05:39] LABS: BUN/Creatinine Ratio 24.3; Bilirubin, Total 0.8 mg/dL (0.2-1.0); Total Protein 6.9 g/dL (6.4-8.2)
[2021-10-24] MEDS: GABAPENTIN 300 MG CAP PO SCH (06:00)
[2021-10-24] MEDS: InsuLIN REG 1unit/0.01ml Soln (100units/ml) SC SCH ×4 (06:00→18:00)
[2021-10-24] MEDS: SODIUM CHLORIDE 0.9% 1,000 ML IV SCH (06:17)
[2021-10-24] MEDS: ACCU-CHEK COMFORT CURVE STRIP VI SCH ×4 (06:19→18:07)
[2021-10-24] MEDS: MEROPENEM 1GM IVPB 100 ML IV SCH (06:20)
[2021-10-24] MEDS: ENOXAPARIN SOD 40 MG/0.4 ML SYRINGE SC SCH (09:06)
[2021-10-24] MEDS: FAMOTIDINE (10MG/ML) 2ML VL IV SCH (09:06)
[2021-10-24] MEDS: POTASSIUM EFFERVESENT TAB 25 MEQ PO SCH (09:07)
[2021-10-24] MEDS: ASPirin 81 mg TAB PO SCH (09:07)
[2021-10-24] MEDS: TAMSULOSIN HYDROCHLORIDE 0.4 MG CAP PO SCH (09:07)
[2021-10-24] MEDS: SOD CHL 0.45% 1,000 ML IV SCH (10:52)
[2021-10-24] MEDS ORDERED: HALOPERIDOL LACTATE 5 MG/ML INJ VIAL IV ONE (14:45)
[2021-10-24] MEDS ORDERED: ERTAPENEM SOD INJ 1 GM in SODIUM CHL 0.9% 50 ML IV ONE (15:15)
[2021-10-24] MEDS: PRAVASTATIN SODIUM 20 MG TAB PO SCH (17:50)
[2021-10-24] MEDS: MORPHINE SULFATE INJECTION 2 MG/ML SYRG IV PRN (20:52)
[2021-10-24] MEDS: HALOPERIDOL LACTATE 5 MG/ML INJ VIAL IM PRN (22:38)
[2021-10-25 05:00] VITALS: BP 148/86
[2021-10-25] MEDS: SOD CHL 0.45% 1,000 ML IV SCH ×4 (05:07→16:33)
[2021-10-25] MEDS: InsuLIN REG 1unit/0.01ml Soln (100units/ml) SC SCH ×5 (05:10→23:46)
[2021-10-25] MEDS: ACCU-CHEK COMFORT CURVE STRIP VI SCH ×5 (05:11→23:43)
[2021-10-25 05:18] LABS: Eosinophils # (auto) 0.2 10 ^3/uL (0-0.8); Eosinophils % (auto) 0.8 % (0.0-7.0); Lymphocytes # (auto) 1.2 10 ^3/uL (0.4-5.4); Red Blood Cells 6.01 10^6/uL (4.5-5.90)
[2021-10-25 05:19] LABS: Basophils # (auto) 0.1 10 ^3/uL (0-0.2); Basophils % (auto) 0.5 % (0.0-2.0); Hematocrit 53.1 % (41.0-53.0); Hemoglobin 16.9 g/dL (13.5-17.5); Lymphocytes % (auto) 6.5 % (10.0-50.0); Mean Corpuscular Hemoglobin 28.1 pg (28.0-32.0); Mean Corpuscular Hgb Conc. 31.8 g/dL (32.0-36.0); Mean Corpuscular Volume 88.4 fL (80.0-100.0); Monocytes # (auto) 1.6 10 ^3/uL (0-1.3); Monocytes % (auto) 8.5 % (0.0-12.0); Neutrophils # (auto) 15.7 10 ^3/uL (1.6-8.6); Neutrophils % (auto) 83.7 % (37.0-80.0); Nucleated Red Blood Cells % 0.1 %; Red Cell Distribution Width 18.4 % (11.8-14.3); White Blood Cell 18.8 10^3/uL (4.4-10.8)
[2021-10-25 05:52] LABS: Albumin 2.4 g/dL (3.4-5.0); Calcium 9.7 mg/dL (8.5-10.1); Potassium 3.7 mmol/L (3.5-5.1)
[2021-10-25 05:56] LABS: Bilirubin, Total 0.8 mg/dL (0.2-1.0); Total Protein 7.4 g/dL (6.4-8.2)
[2021-10-25] MEDS: ERTAPENEM SOD INJ 1 GM in SODIUM CHL 0.9% 50 ML IV SCH (08:49)
[2021-10-25] MEDS: ENOXAPARIN SOD 40 MG/0.4 ML SYRINGE SC SCH (08:49)
[2021-10-25] MEDS: FAMOTIDINE (10MG/ML) 2ML VL IV SCH (08:49)
[2021-10-25 09:00] VITALS: BP 141/96
[2021-10-25] MEDS: ASPirin 81 mg TAB PO SCH ×2 (10:00→10:28)
[2021-10-25] MEDS: MORPHINE SULFATE INJECTION 2 MG/ML SYRG IV PRN (10:37)
[2021-10-25 12:33] VITALS: BP 152/91
[2021-10-25] MEDS: PRAVASTATIN SODIUM 20 MG TAB PO SCH (16:55)
[2021-10-25 17:00] VITALS: BP 167/98
[2021-10-25] MEDS: LABETALOL HCL 5 MG/ML 4ML SYRINGE IV PRN (21:33)
[2021-10-25] MEDS: FAMOTIDINE 20 MG TAB PO SCH (21:57)
[2021-10-25 22:00] VITALS: BP 160/96
[2021-10-26] MEDS: LABETALOL HCL 5 MG/ML 4ML SYRINGE IV PRN (00:45)
[2021-10-26 05:00] VITALS: BP 120/74
[2021-10-26] MEDS: ACCU-CHEK COMFORT CURVE STRIP VI SCH ×4 (05:45→18:16)
[2021-10-26] MEDS: InsuLIN REG 1unit/0.01ml Soln (100units/ml) SC SCH ×3 (05:48→18:00)
[2021-10-26 06:16] LABS: BUN/Creatinine Ratio 26.9; Calcium 9.2 mg/dL (8.5-10.1); Potassium 4.5 mmol/L (3.5-5.1)
[2021-10-26] MEDS ORDERED: SODIUM CHLORIDE 0.9% 1,000 ML IV ONE ×2 (08:15→10:15)
[2021-10-26] MEDS: ASPirin 81 mg TAB PO SCH (08:44)
[2021-10-26] MEDS: FAMOTIDINE 20 MG TAB PO SCH ×2 (08:44→22:00)
[2021-10-26 09:00] VITALS: BP 67/40
[2021-10-26] MEDS ORDERED: ALBUMIN 25% 50 ML IV ONE (09:15)
[2021-10-26] MEDS: ENOXAPARIN SOD 40 MG/0.4 ML SYRINGE SC SCH (10:21)
[2021-10-26] MEDS: ERTAPENEM SOD INJ 1 GM in SODIUM CHL 0.9% 50 ML IV SCH (11:08)
[2021-10-26] MEDS: D5W 5% 1,000 ML IV SCH (12:52)
[2021-10-26 13:00] VITALS: BP 120/79
[2021-10-26] MEDS: PRAVASTATIN SODIUM 20 MG TAB PO SCH (17:13)
[2021-10-26 22:00] VITALS: BP 146/90
[2021-10-26] MEDS: METOPROLOL TARTRATE 25 MG TAB PO SCH (22:00)
[2021-10-27] MEDS: ACCU-CHEK COMFORT CURVE STRIP VI SCH ×5 (01:28→23:33)
[2021-10-27] MEDS: InsuLIN REG 1unit/0.01ml Soln (100units/ml) SC SCH ×5 (01:33→23:28)
[2021-10-27] MEDS: D5W 5% 1,000 ML IV SCH (04:15)
[2021-10-27 05:00] VITALS: BP 151/96
[2021-10-27 05:05] VITALS: BP 170/76
[2021-10-27] MEDS ORDERED: IPRATROPIUM BROM 0.5 MG/2.5ML INH SOL NEB ONE (08:45)
[2021-10-27] MEDS ORDERED: methylPREDNISolone SOD SUCC 125 MG/2 ML VL IV ONE (08:45)
[2021-10-27] MEDS: ALBUTEROL SULF 2.5 MG/0.5ML(0.5%) NEB SOLN NEB PRN (08:58)
[2021-10-27] MEDS: ENOXAPARIN SOD 40 MG/0.4 ML SYRINGE SC SCH (09:22)
[2021-10-27 09:30] VITALS: BP 146/70
[2021-10-27] MEDS: ASPirin 81 mg TAB PO SCH (10:00)
[2021-10-27] MEDS: METOPROLOL TARTRATE 25 MG TAB PO SCH ×2 (10:00→22:00)
[2021-10-27] MEDS: FAMOTIDINE 20 MG TAB PO SCH ×2 (10:00→22:00)
[2021-10-27 11:54] LABS: Basophils # (auto) 0.2 10 ^3/uL (0-0.2); Basophils % (auto) 1.2 % (0.0-2.0); Eosinophils # (auto) 0 10 ^3/uL (0-0.8); Eosinophils % (auto) 0.2 % (0.0-7.0); Hemoglobin 16.4 g/dL (13.5-17.5); Lymphocytes # (auto) 1.2 10 ^3/uL (0.4-5.4); Lymphocytes % (auto) 6.3 % (10.0-50.0); Mean Corpuscular Hemoglobin 28.1 pg (28.0-32.0); Mean Corpuscular Volume 90.7 fL (80.0-100.0); Monocytes # (auto) 1.2 10 ^3/uL (0-1.3); Monocytes % (auto) 6.3 % (0.0-12.0); Neutrophils # (auto) 16.3 10 ^3/uL (1.6-8.6); Red Blood Cells 5.85 10^6/uL (4.5-5.90)
[2021-10-27 12:26] LABS: Albumin 2.9 g/dL (3.4-5.0); Calcium 9.1 mg/dL (8.5-10.1); Potassium 4.8 mmol/L (3.5-5.1)
[2021-10-27 12:29] LABS: BUN/Creatinine Ratio 26.2; Bilirubin, Total 0.6 mg/dL (0.2-1.0); Total Protein 7.6 g/dL (6.4-8.2)
[2021-10-27 13:30] VITALS: BP 170/76
[2021-10-27] MEDS ORDERED: SODIUM CHLORIDE 0.9% 1,000 ML IV ONE (14:30)
[2021-10-27] MEDS: ERTAPENEM SOD INJ 1 GM in SODIUM CHL 0.9% 50 ML IV SCH (14:45)
[2021-10-27 16:00] VITALS: BP 105/54
[2021-10-27 17:00] VITALS: BP 100/56
[2021-10-27] MEDS: PRAVASTATIN SODIUM 20 MG TAB PO SCH (17:07)
[2021-10-27 21:30] LABS: Magnesium 2.8 mg/dL (1.6-2.6)
[2021-10-27] MEDS ORDERED: methylPREDNISolone SOD SUCC 40 MG/ML VL IV SCH (22:00)
[2021-10-28] MEDS: D5W 5% 1,000 ML IV SCH (00:15)
== END 2021-10-28 01:35 | DRG 853 ==
LOC: SUR 08:45 → TELE 14:35 → CATH ICU 18:09 → TELE-CENTR 10-24 15:32
PROVIDERS: ADMIT Hospitalist; ATTEND Anesthesiology Pain Medicine
PROC: 0QU03JZ Supplement Lumbar Vertebra with Synthetic Substitute, Percutaneous Approach (ICD-10-PCS; 2021-10-16)
PROC: 5A1945Z Respiratory Ventilation, 24-96 Consecutive Hours (ICD-10-PCS; 2021-10-16)
PROC: 0BH17EZ Insertion of Endotracheal Airway into Trachea, Via Natural or Artificial Opening (ICD-10-PCS; 2021-10-16)
PROC: 4B02XSZ Measurement of Cardiac Pacemaker, External Approach (ICD-10-PCS; 2021-10-16)
PROC: 0QS03ZZ Reposition Lumbar Vertebra, Percutaneous Approach (ICD-10-PCS; principal; 2021-10-16 12:00)
PROC: 05HC33Z Insertion of Infusion Device into Left Basilic Vein, Percutaneous Approach (ICD-10-PCS; 2021-10-18)
PROC: B54NZZA Ultrasonography of Left Upper Extremity Veins, Guidance (ICD-10-PCS; 2021-10-18)
PROC: 5A09357 Assistance with Respiratory Ventilation, Less than 24 Consecutive Hours, Continuous Positive Airway Pressure (ICD-10-PCS; 2021-10-27)
DX: A41.9 Sepsis, unspecified organism (principal); I46.9 Cardiac arrest, cause unspecified; J96.01 Acute respiratory failure with hypoxia; J15.5 Pneumonia due to Escherichia coli; J96.02 Acute respiratory failure with hypercapnia; N17.0 Acute kidney failure with tubular necrosis; G92.9 Unspecified toxic encephalopathy; I50.33 Acute on chronic diastolic (congestive) heart failure; I13.0 Hypertensive heart and chronic kidney disease with heart failure and stage 1 through stage 4 chronic kidney disease, or unspecified chronic kidney disease; S32.010A Wedge compression fracture of first lumbar vertebra, initial encounter for closed fracture; S32.020A Wedge compression fracture of second lumbar vertebra, initial encounter for closed fracture; J98.11 Atelectasis; J44.0 Chronic obstructive pulmonary disease with (acute) lower respiratory infection; Z16.12 Extended spectrum beta lactamase (ESBL) resistance; G93.1 Anoxic brain damage, not elsewhere classified; I82.612 Acute embolism and thrombosis of superficial veins of left upper extremity; M80.88XA Other osteoporosis with current pathological fracture, vertebra(e), initial encounter for fracture; Z66 Do not resuscitate; E78.5 Hyperlipidemia, unspecified; E11.22 Type 2 diabetes mellitus with diabetic chronic kidney disease; E11.51 Type 2 diabetes mellitus with diabetic peripheral angiopathy without gangrene; E11.65 Type 2 diabetes mellitus with hyperglycemia; E87.6 Hypokalemia; E88.09 Other disorders of plasma-protein metabolism, not elsewhere classified; N40.0 Benign prostatic hyperplasia without lower urinary tract symptoms; Z20.822 Contact with and (suspected) exposure to COVID-19; N18.30 Chronic kidney disease, stage 3 unspecified; F29 Unspecified psychosis not due to a substance or known physiological condition; E83.42 Hypomagnesemia; I48.91 Unspecified atrial fibrillation; K43.9 Ventral hernia without obstruction or gangrene; M54.89 Other dorsalgia; M54.9 Dorsalgia, unspecified; Z53.9 Procedure and treatment not carried out, unspecified reason; I25.10 Atherosclerotic heart disease of native coronary artery without angina pectoris; Z79.4 Long term (current) use of insulin; Z95.0 Presence of cardiac pacemaker; Z95.1 Presence of aortocoronary bypass graft; Z83.3 Family history of diabetes mellitus; Z90.81 Acquired absence of spleen; Z78.1 Physical restraint status; Z79.82 Long term (current) use of aspirin; Z79.899 Other long term (current) drug therapy; Z82.49 Family history of ischemic heart disease and other diseases of the circulatory system; Z91.19 Patient's noncompliance with other medical treatment and regimen
CPT/HCPCS: 36415; 36600; 70450; 71045; 76700; 80048; 80053; 80074; 80307; 81001; 82306; 82570; 82728; 82805; 82962; 83036; 83735; 83880; 83970; 84100; 84156; 84300; 84484; 85025; 85379; 85610; 85730; 86141; 86803; 87040; 87070; 87077; 87086; 87186; 87205; 87426; 92610; 93306; 93971; 94002; 94003; 94640; 94660; 94667; 94668; 95819; 97110; 97163; G0378; J0171; J0690; J1335; J1815; J1956; J2185; J2250; J3490; J7042; J7060